=== PATIENT | male | born 1980 | race Caucasian/White ===

== ENCOUNTER 2022-11-22 20:44 | Inpatient (IN) | payer SELFPAY ==
[2022-11-22] MEDS ORDERED: Sodium Chloride 0.9% 1,000 ML IV STA (21:02)
[2022-11-22] MEDS ORDERED: Ondansetron 4 MG/2 ML SDV IVPUSH ONE (21:02)
[2022-11-22] MEDS ORDERED: HYDROmorphone 0.5 MG/0.5 ML Syringe IVPUSH ONE (21:08)
[2022-11-22 21:14] LABS: BASOPHILS ABSOLUTE AUTO 0.1 K/mm3 (0.0-0.2); BASOPHILS PERCENT AUTO 0.3 % (0.0-1.0); EOSINOPHILS PERCENT AUTO 0.1 % (0.0-6.0); HEMATOCRIT 49.7 % (42.0-52.0); HEMOGLOBIN 17.2 gm/dl (14.0-18.0); IMMATURE GRAN ABSOLUTE AUTO 0.09 K/mm3 (0.00-0.05); IMMATURE GRAN PERCENT AUTO 0.5 % (0.0-0.4); LYMPHOCYTES ABSOLUTE AUTO 1.8 K/mm3 (1.0-4.8); LYMPHOCYTES PERCENT AUTO 9.3 % (24.0-44.0); MEAN CORPUSCULAR HEMOGLOBIN 32.4 pg (28.0-32.0); MEAN CORPUSCULAR HGB CONC 34.6 g/dl (32.0-36.0); MEAN CORPUSCULAR VOLUME 93.6 fl (83.0-99.0); MEAN PLATELET VOLUME 9.5 fl (9.4-12.4); MONOCYTES ABSOLUTE AUTO 1.3 K/mm3 (0.0-0.8); MONOCYTES PERCENT AUTO 6.8 % (0.0-8.0); NEUTROPHILS ABSOLUTE AUTO 15.7 K/mm3 (1.8-7.7); PLATELET COUNT,PLT 209 K/mm3 (150-400); RED BLOOD CELL COUNT 5.31 M/mm3 (4.52-5.90); WHITE BLOOD CELL COUNT,WBC 18.89 K/mm3 (3.9-11.3)
[2022-11-22] MEDS ORDERED: Sodium Chloride 0.9% 10 ML SDV FLUSH ONE (21:14)
[2022-11-22] MEDS ORDERED: Iopamidol 612 MG/ML 100 ML Bottle IVPUSH ONE (21:14)
[2022-11-22] MEDS: Sodium Chloride 0.9% 10 ML Syringe FLUSH PRN ×2 (21:21→21:46)
[2022-11-22 21:25] LABS: ALBUMIN 3.8 g/dl (3.4-5.0); ANION GAP 14.2 (5-15); CALCIUM 9.1 mg/dL (8.5-10.1); CREATININE 1.4 mg/dL (0.7-1.3); EST CRCL DRUG DOSING (CG) 79.92 mL/min; POTASSIUM,K 4.2 mEq/L (3.5-5.1); PROTEIN TOTAL,TP 7.7 g/dl (6.4-8.2)
[2022-11-22] MEDS ORDERED: Piperacillin/Tazobactam 4.5 GM in Sodium Chloride 0.9% 100 ML IV ONE (22:28)
[2022-11-22] MEDS ORDERED: Piperacillin/Tazobactam 4.5 GM in Sodium Chloride 0.9% 100 ML IV SCH (22:30)
[2022-11-22] MEDS ORDERED: Rocuronium 50 MG/5 ML Vial ONE (23:35)
[2022-11-22] MEDS ORDERED: Succinylcholine 200 MG/10 ML MDV ONE (23:35)
[2022-11-22] MEDS ORDERED: Lidocaine 1% 5 ML VIAL ONE (23:35)
[2022-11-22] MEDS ORDERED: Propofol 200 MG/20 ML SDV ONE (23:35)
[2022-11-22] MEDS ORDERED: fentaNYL 250 MCG/5 ML SDV ONE (23:36)
[2022-11-22] MEDS ORDERED: Midazolam 1 MG/ML 2 ML SDV ONE (23:53)
[2022-11-23] MEDS ORDERED: Bupivacaine 0.5% 30 ML SDV ONE (00:17)
[2022-11-23] MEDS ORDERED: EPINEPHrine 1 MG/ML SDV ONE (00:17)
[2022-11-23] MEDS ORDERED: ceFAZolin 1 GM Vial ONE ×2 (00:33→01:07)
[2022-11-23] MEDS ORDERED: Dexamethasone 4 MG/ML 5 ML MDV ONE (00:47)
[2022-11-23] MEDS ORDERED: Ondansetron 4 MG/2 ML SDV ONE (00:47)
[2022-11-23] MEDS ORDERED: HYDROmorphone 0.5 MG/0.5 ML Syringe ONE (00:56)
[2022-11-23] MEDS ORDERED: Neostigmine Methylsulfate 10 MG/10 ML MDV ONE (00:58)
[2022-11-23] MEDS ORDERED: Rocuronium 50 MG/5 ML Vial ONE (01:07)
[2022-11-23] MEDS ORDERED: Ondansetron 8 MG in Sodium Chloride 0.9% 50 ML IV PRN (01:51)
[2022-11-23] MEDS ORDERED: Lactated Ringers 1,000 ML IV SCH (02:00)
[2022-11-23] MEDS: Piperacillin/Tazobactam 4.5 GM in Sodium Chloride 0.9% 100 ML IV SCH ×6 (02:38→19:38)
[2022-11-23] MEDS: Ketorolac 30 MG/ML SDV IVPUSH SCH ×2 (03:37→08:35)
[2022-11-23] MEDS: Metoclopramide 10 MG/2 ML SDV IVPUSH SCH ×4 (03:37→20:25)
[2022-11-23 05:56] LABS: BASOPHILS PERCENT AUTO 0.2 % (0.0-1.0); HEMATOCRIT 46.4 % (42.0-52.0); HEMOGLOBIN 15.8 gm/dl (14.0-18.0); IMMATURE GRAN ABSOLUTE AUTO 0.05 K/mm3 (0.00-0.05); IMMATURE GRAN PERCENT AUTO 0.4 % (0.0-0.4); LYMPHOCYTES ABSOLUTE AUTO 0.6 K/mm3 (1.0-4.8); LYMPHOCYTES PERCENT AUTO 4.6 % (24.0-44.0); MEAN CORPUSCULAR HEMOGLOBIN 32.6 pg (28.0-32.0); MEAN CORPUSCULAR HGB CONC 34.1 g/dl (32.0-36.0); MEAN CORPUSCULAR VOLUME 95.9 fl (83.0-99.0); MEAN PLATELET VOLUME 9.8 fl (9.4-12.4); MONOCYTES ABSOLUTE AUTO 0.4 K/mm3 (0.0-0.8); MONOCYTES PERCENT AUTO 2.7 % (0.0-8.0); NEUTROPHILS ABSOLUTE AUTO 11.8 K/mm3 (1.8-7.7); NEUTROPHILS PERCENT AUTO 92.1 % (41.0-71.0); PLATELET COUNT,PLT 179 K/mm3 (150-400); RED BLOOD CELL COUNT 4.84 M/mm3 (4.52-5.90); WHITE BLOOD CELL COUNT,WBC 12.84 K/mm3 (3.9-11.3)
[2022-11-23 06:12] LABS: ANION GAP 14.4 (5-15); BUN/CREATININE RATIO 15.4 (14-18); CALCIUM 8.3 mg/dL (8.5-10.1); CREATININE 1.3 mg/dL (0.7-1.3); EST CRCL DRUG DOSING (CG) 86.06 mL/min; POTASSIUM,K 4.4 mEq/L (3.5-5.1)
[2022-11-23 07:17] LABS: SLIDE REVIEW ABNORMAL SMEAR
[2022-11-23] MEDS: Famotidine 20 MG/2 ML SDV IV SCH ×2 (08:42→20:26)
[2022-11-23] MEDS: HYDROmorphone 1 MG/ML Syringe IVPUSH PRN ×2 (12:17→20:17)
[2022-11-23] MEDS: Acetaminophen 325 MG Tab PO SCH ×2 (13:57→18:51)
[2022-11-23] MEDS: Enoxaparin 40 MG/0.4 ML Syringe SUBCUT SCH (20:28)
[2022-11-24] MEDS: HYDROmorphone 1 MG/ML Syringe IVPUSH PRN ×6 (00:19→22:16)
[2022-11-24] MEDS: Acetaminophen 325 MG Tab PO SCH ×4 (00:21→18:09)
[2022-11-24] MEDS: Metoclopramide 10 MG/2 ML SDV IVPUSH SCH ×4 (02:55→20:03)
[2022-11-24] MEDS: Piperacillin/Tazobactam 4.5 GM in Sodium Chloride 0.9% 100 ML IV SCH ×3 (03:28→18:56)
[2022-11-24] MEDS: Famotidine 20 MG/2 ML SDV IV SCH ×2 (08:58→20:04)
[2022-11-24] MEDS: Enoxaparin 40 MG/0.4 ML Syringe SUBCUT SCH (20:02)
[2022-11-25] MEDS: Acetaminophen 325 MG Tab PO SCH ×4 (00:31→18:44)
[2022-11-25] MEDS: Piperacillin/Tazobactam 4.5 GM in Sodium Chloride 0.9% 100 ML IV SCH (03:08)
[2022-11-25] MEDS: HYDROmorphone 1 MG/ML Syringe IVPUSH PRN (05:06)
[2022-11-25 07:13] LABS: BASOPHILS PERCENT AUTO 0.5 % (0.0-1.0); EOSINOPHILS ABSOLUTE AUTO 0.1 K/mm3 (0.0-0.4); EOSINOPHILS PERCENT AUTO 1.6 % (0.0-6.0); HEMATOCRIT 40.2 % (42.0-52.0); HEMOGLOBIN 13.3 gm/dl (14.0-18.0); IMMATURE GRAN ABSOLUTE AUTO 0.02 K/mm3 (0.00-0.05); IMMATURE GRAN PERCENT AUTO 0.3 % (0.0-0.4); LYMPHOCYTES ABSOLUTE AUTO 2.5 K/mm3 (1.0-4.8); LYMPHOCYTES PERCENT AUTO 33.3 % (24.0-44.0); MEAN CORPUSCULAR HEMOGLOBIN 32.5 pg (28.0-32.0); MEAN CORPUSCULAR HGB CONC 33.1 g/dl (32.0-36.0); MEAN CORPUSCULAR VOLUME 98.3 fl (83.0-99.0); MONOCYTES ABSOLUTE AUTO 0.5 K/mm3 (0.0-0.8); MONOCYTES PERCENT AUTO 6.8 % (0.0-8.0); NEUTROPHILS ABSOLUTE AUTO 4.4 K/mm3 (1.8-7.7); NEUTROPHILS PERCENT AUTO 57.5 % (41.0-71.0); PLATELET COUNT,PLT 155 K/mm3 (150-400); RED BLOOD CELL COUNT 4.09 M/mm3 (4.52-5.90); WHITE BLOOD CELL COUNT,WBC 7.62 K/mm3 (3.9-11.3)
[2022-11-25] MEDS: ceFAZolin 2 GM in Sodium Chloride 0.9% 50 ML IV SCH ×2 (10:30→18:42)
[2022-11-25] MEDS: oxyCODONE 5 MG Tab PO PRN ×2 (10:33→14:54)
[2022-11-25] MEDS: Famotidine 20 MG/2 ML SDV IV SCH (10:37)
[2022-11-25] MEDS: Enoxaparin 40 MG/0.4 ML Syringe SUBCUT SCH (20:04)
[2022-11-26] MEDS: Acetaminophen 325 MG Tab PO SCH ×2 (00:14→06:21)
[2022-11-26] MEDS: ceFAZolin 2 GM in Sodium Chloride 0.9% 50 ML IV SCH ×2 (02:30→13:31)
== END 2022-11-26 11:54 | disposition home or self-care (01) | DRG 344 ==
LOC: JD.ED 20:44 → JD.SDS 23:26 → JD.MS 11-23 01:52
PROVIDERS: ADMIT Specialist; ATTEND Specialist
PROC: 0DC80ZZ Extirpation of Matter from Small Intestine, Open Approach (ICD-10-PCS; principal; 2022-11-23)
DX: K63.1 Perforation of intestine (nontraumatic) (principal); K65.9 Peritonitis, unspecified; T81.49XA Infection following a procedure, other surgical site, initial encounter; F17.210 Nicotine dependence, cigarettes, uncomplicated; T18.3XXA Foreign body in small intestine, initial encounter; Z90.49 Acquired absence of other specified parts of digestive tract; Z98.890 Other specified postprocedural states
CPT/HCPCS: 36415; 74177; 74177-26; 80048; 80053; 82947; 85025; 94761; 94762; 99285; A9270-GY; J0171; J0330; J0690; J1100; J1170; J1650; J1885; J2250; J2405; J2543; J2704; J2710; J2765; J3010; J3490; J7030; J7120; Q9967

== ENCOUNTER 2023-11-13 21:23 | Emergency (ER) | payer OTHER ==
[2023-11-13 21:35] LABS: BASOPHILS PERCENT AUTO 0.5 % (0.0-1.0); EOSINOPHILS ABSOLUTE AUTO 0.3 K/mm3 (0.0-0.4); EOSINOPHILS PERCENT AUTO 3.2 % (0.0-6.0); HEMATOCRIT 50.2 % (42.0-52.0); HEMOGLOBIN 17.3 gm/dl (14.0-18.0); IMMATURE GRAN ABSOLUTE AUTO 0.04 K/mm3 (0.00-0.05); IMMATURE GRAN PERCENT AUTO 0.5 % (0.0-0.4); LYMPHOCYTES ABSOLUTE AUTO 3.3 K/mm3 (1.0-4.8); LYMPHOCYTES PERCENT AUTO 37.6 % (24.0-44.0); MEAN CORPUSCULAR HEMOGLOBIN 31.6 pg (28.0-32.0); MEAN CORPUSCULAR HGB CONC 34.5 g/dl (32.0-36.0); MEAN CORPUSCULAR VOLUME 91.6 fl (83.0-99.0); MEAN PLATELET VOLUME 9.6 fl (9.4-12.4); MONOCYTES ABSOLUTE AUTO 0.8 K/mm3 (0.0-0.8); MONOCYTES PERCENT AUTO 9.2 % (0.0-8.0); NEUTROPHILS ABSOLUTE AUTO 4.3 K/mm3 (1.8-7.7); PLATELET COUNT,PLT 279 K/mm3 (150-400); RED BLOOD CELL COUNT 5.48 M/mm3 (4.52-5.90)
[2023-11-13] MEDS: HYDROmorphone 0.5 MG/0.5 ML Syringe IVPUSH ONE ×2 (21:37→23:49)
[2023-11-13] MEDS: HYDROmorphone 0.5 MG/0.5 ML Syringe ONE (21:38)
[2023-11-13] MEDS: Sodium Chloride 0.9% 1,000 ML IV SCH (21:38)
[2023-11-13] MEDS: Sodium Chloride 0.9% 1,000 ML ONE (21:38)
[2023-11-13 21:58] LABS: A/G RATIO 1.1 (1-2); BILIRUBIN TOTAL 0.3 mg/dL (0.2-1.0); CALCIUM 8.9 mg/dL (8.5-10.1); CREATININE 1.2 mg/dL (0.7-1.3); EST CRCL DRUG DOSING (CG) 87.12 mL/min; ETHANOL BLOOD MEDICAL 0.21 gm% (0.00); PROTEIN TOTAL,TP 7.8 g/dl (6.4-8.2)
[2023-11-13 22:15] LABS: APPEARANCE,URINE CLEAR (Clear); BILIRUBIN,URINE NEGATIVE (Negative); COLOR,URINE LIGHT YELLOW (Yellow); GLUCOSE,URINE NEGATIVE (Negative); KETONES,URINE NEGATIVE (Negative); LEUKOCYTE ESTERASE,URINE NEGATIVE (Negative); NITRITE,URINE NEGATIVE (Negative); OCCULT BLOOD,URINE NEGATIVE (Negative); PROTEIN,URINE NEGATIVE (Negative); UROBILINOGEN,URINE 0.2 (0.2-1.0)
[2023-11-13] MEDS: Ondansetron 4 MG/2 ML SDV ONE (22:19)
[2023-11-13] MEDS: Ondansetron 4 MG/2 ML SDV IVPUSH ONE ×2 (22:20→23:49)
[2023-11-13] MEDS: Iopamidol 612 MG/ML 100 ML Bottle IVPUSH ONE (22:20)
[2023-11-13 22:24] LABS: BARBITURATE SCREEN,URINE NEGATIVE (CUTOFF=200); BENZODIAZEPINES SCREEN,URINE NEGATIVE (CUTOFF=150); BUPRENORPHINE SCREEN,URINE NEGATIVE (CUTOFF=10); METHADONE SCREEN, URINE NEGATIVE (CUT0FF=200); METHAMPHETAMINES SCREEN, URINE NEGATIVE (CUTOFF=500); OXYCODONE SCREEN,URINE NEGATIVE (CUT0FF=100); THC SCREEN,URINE 20 NG/ML PRESUMPTIVE POSITIVE (CUTOFF=50)
[2023-11-13 22:26] LABS: AMPHETAMINES SCREEN, URINE NEGATIVE (CUTOFF=500)
[2023-11-14] MEDS: Ondansetron 4 MG Tab.DIS PO ONE (01:12)
== END 2023-11-14 01:31 | disposition home or self-care (01) ==
LOC: JD.ED 21:23
DX: S16.1XXA Strain of muscle, fascia and tendon at neck level, initial encounter (principal); S00.83XA Contusion of other part of head, initial encounter; S00.01XA Abrasion of scalp, initial encounter; F10.129 Alcohol abuse with intoxication, unspecified; F17.210 Nicotine dependence, cigarettes, uncomplicated; Z86.16 Personal history of COVID-19; Z79.899 Other long term (current) drug therapy; V49.40XA Driver injured in collision with unspecified motor vehicles in traffic accident, initial encounter; Y92.410 Unspecified street and highway as the place of occurrence of the external cause
CPT/HCPCS: 36415; 70450; 71260; 72125; 74177; 80053; 80306; 80307; 81003; 85025; 93005; 96361; 96374; 96375; 96376; 99285; A9270; J1170; J2405; J7030; Q9967